=== PATIENT | male | born 1975 | race Caucasian/White ===

== ENCOUNTER 2018-09-11 07:05 | Day surgery (SDC) | payer BC ==
[2018-09-08 16:13] VITALS: BMI 28.8
[~2018-09-11 07:05] MED LIST: DEXAMETHASONE SOD PHOSPHATE 10 MG/ML 1 ML VIAL IV ONE; HYDROmorphone 0.5 MG/0.5 ML SYRINGE IVP PRN; LACTATED RINGERS 1,000 ML IV SCH; LIDOCAINE 1% 20 ML VIAL (10MG/ML) FOR IV START INTRADERMA PRN; ONDANSETRON 4 MG/2 ML VIAL IVP ONE; SCOPOLAMINE 1.5MG/72HR PATCH TRANSDERM ONE
[2018-09-11 07:24] VITALS: TEMP 98.7
[2018-09-11 07:39] LABS: Glucose,Whole Blood 193 mg/dL (75-99)
[2018-09-11] MEDS ORDERED: PROPOFOL 10 MG/ML 20 ML VIAL IV ONE (08:42)
[2018-09-11] MEDS ORDERED: LIDOCAINE 1% INJ 10MG/ML (20 ML MDV) ONE (08:42)
[2018-09-11 09:03] VITALS: RESP 16
--- NOTE | 2018-09-11 09:07 | P.PCN ---
Date of Procedure: 09/11/18 Procedure(s) Performed: Procedure: Esophagogastroduodenoscopy and biopsy. Preoperative diagnosis: Persistent reflux symptoms requiring therapy. Postoperative diagnosis: 1. Small sliding hiatal hernia with no obvious esophagitis or complicated reflux disease. 2. Mild antral gastritis. 3. Multiple biopsies obtained from the duodenum, antrum and esophagus. Preparation and sedation: Was provided by anesthesia. Brief clinical history: The patient is a 43-year-old male with history of diabetes mellitus who is scheduled for this evaluation because of onset of reflux symptoms 5 or 6 months ago that has been persistent requiring therapy. Symptoms with recur after discontinuation of his treatments. This evaluation is to assess for esophagitis, complicated reflux disease or other pathology. Procedure: With the patient on his left lateral decubitus position and after informed consent and adequate sedation, I passed the Olympus-GIF 160 video upper endoscope through the cricopharyngeus down the esophagus. GE junction was around 40 cm from the incisors and there was a small sliding hiatal hernia but no obvious esophagitis or complicated reflux disease. There was no evidence of Diamond esophagitis. The endoscope was then passed into the stomach which was insufflated with air and inspected in detail including the retroflex view in the cardia. There was some mottling and erythema in the antrum but no ulcers or erosions. There was no evidence of gastroparesis or any phytobezoars. Pyloric channel, duodenal bulb, post bulbar area and descending duodenum appeared within normal limits. Because of his symptoms, I obtained biopsies from the duodenum, antrum and esophagus then the endoscope was withdrawn. The patient tolerated the procedure well. Plan: The patient was reassured. Will await biopsy results and make further recommendations. Despite the absence of any evidence of gastroparesis, with his history of diabetes, we would keep in mind the possibility of gastric emptying contributing to his reflux issues. Consideration can be given for a gastric emptying study or a trial with Reglan if his symptoms persist despite therapy. I would be happy to see in the office and co-manage his reflux issues with you. I will keep you updated on his progress.
[2018-09-11 09:22] VITALS: BP 139/87; PULSE 92
== END 2018-09-11 09:44 | disposition home or self-care (01) ==
LOC: ORWHC2ENDO 07:05
DX: K29.50 Unspecified chronic gastritis without bleeding (principal); K29.80 Duodenitis without bleeding; K21.0 Gastro-esophageal reflux disease with esophagitis; E11.9 Type 2 diabetes mellitus without complications; K44.9 Diaphragmatic hernia without obstruction or gangrene; I10 Essential (primary) hypertension; E78.5 Hyperlipidemia, unspecified; Z79.899 Other long term (current) drug therapy; Z88.8 Allergy status to other drugs, medicaments and biological substances
CPT/HCPCS: 88305; 43239; J2001; J2704